=== PATIENT | male | born 1975 | race African-American/Black ===

== ENCOUNTER 2018-04-25 02:50 | Emergency (ER) | payer MEDICAID, OTHER ==
[~2018-04-25] VITALS: Ht 177.8 cm; Wt 77.0 kg
[2018-04-25 03:15] VITALS: BP 136/76
[2018-04-25] MEDS ORDERED: KETOROLAC 60MG/2ML VIAL IM ONE (06:30)
[2018-04-25 06:53] LABS: CLARITY URINE CLOUDY (CLEAR); COLOR URINE YELLOW (YELLOW); KETONES URINE NEGATIVE (NEGATIVE); LEUKOCYTE ESTERASE URINE NEGATIVE (NEGATIVE); NITRITE URINE NEGATIVE (NEGATIVE); OCCULT BLOOD URINE NEGATIVE (NEGATIVE); PH URINE 5.5 (4.5-8.0); PROTEIN URINE NEGATIVE (NEGATIVE); SPECIFIC GRAVITY URINE 1.011 (1.005-1.030)
[2018-04-25 07:06] LABS: *AMPHETAMINES SCREEN URINE NEGATIVE (NEGATIVE); *BARBITURATES SCREEN URINE NEGATIVE (NEGATIVE); *BENZODIAZEPINES SCREEN URINE NEGATIVE (NEGATIVE); *COCAINE SCREEN URINE NEGATIVE (NEGATIVE); METHADONE URINE SCREEN NEGATIVE (NEGATIVE); OPIATES URINE SCREEN NEGATIVE (NEGATIVE)
[2018-04-25 07:07] LABS: CANNABINOID URINE SCREEN NEGATIVE (NEGATIVE); PHENCYCLIDINE URINE SCREEN PRESUMTIVE POSITIVE (NEGATIVE)
== END 2018-04-25 07:00 | disposition left against medical advice (07) ==
LOC: ER 02:54
DX: M54.5 Low back pain (principal); F16.129 Hallucinogen abuse with intoxication, unspecified; F12.10 Cannabis abuse, uncomplicated; V49.88XA Car occupant (driver) (passenger) injured in other specified transport accidents, initial encounter; Y93.89 Activity, other specified; Y99.8 Other external cause status; Y92.410 Unspecified street and highway as the place of occurrence of the external cause
CPT/HCPCS: 80305; 81003; 99284

== ENCOUNTER 2021-03-04 20:08 | Emergency (ER) | payer BC, OTHER ==
[~2021-03-04] VITALS: Ht 182.9 cm; Wt 84.0 kg
[2021-03-04 21:09] LABS: BASOPHILS % 0.5 % (0.0-2.0); HEMATOCRIT. 39.5 % (42.0-52.0); HEMOGLOBIN. 13.9 g/dL (14.0-18.0); LYMPHOCYTES % 31.4 % (20.0-50.0); MEAN CORPUSCULAR HEMOGLOBIN 31.2 pg (28.0-32.0); MEAN CORPUSCULAR VOLUME 88.7 fL (80.0-94.0); MONOCYTES % 12.1 % (2.0-8.0); PLATELET 187 x1000/uL (130-400); RED BLOOD CELL COUNT 4.45 mill/uL (4.7-6.1); RED CELL DISTRIBUTION WIDTH 13.4 % (11.6-14.6)
[2021-03-04 21:15] LABS: CHLORIDE 106 mEq/L (98-107)
[2021-03-04 21:19] LABS: ETHANOL BLOOD < 10 mg/dL
[2021-03-04 22:35] LABS: CLARITY URINE CLEAR (CLEAR); COLOR URINE DARK YELLOW (YELLOW); KETONES URINE TRACE (NEGATIVE); LEUKOCYTE ESTERASE URINE NEGATIVE (NEGATIVE); NITRITE URINE NEGATIVE (NEGATIVE); OCCULT BLOOD URINE NEGATIVE (NEGATIVE); PH URINE 5.5 (4.5-8.0); PROTEIN URINE TRACE (NEGATIVE); SPECIFIC GRAVITY URINE 1.042 (1.005-1.030)
[2021-03-04 22:48] LABS: *AMPHETAMINES SCREEN URINE NEGATIVE (NEGATIVE); *BARBITURATES SCREEN URINE NEGATIVE (NEGATIVE); *BENZODIAZEPINES SCREEN URINE NEGATIVE (NEGATIVE); *COCAINE SCREEN URINE NEGATIVE (NEGATIVE); METHADONE URINE SCREEN NEGATIVE (NEGATIVE); OPIATES URINE SCREEN NEGATIVE (NEGATIVE)
[2021-03-04 22:49] LABS: CANNABINOID URINE SCREEN NEGATIVE (NEGATIVE); PHENCYCLIDINE URINE SCREEN PRESUMTIVE POSITIVE (NEGATIVE)
[2021-03-04] MEDS ORDERED: LORAZEPAM 1MG TABLET PO ONE (23:45)
[2021-03-05 08:27] VITALS: BP 111/91
[2021-03-05] MEDS ORDERED: ACETAMINOPHEN 325MG TABLET PO ONE ×2 (09:15)
== END 2021-03-05 09:10 | disposition home or self-care (01) ==
LOC: ER 20:08
DX: T40.991A Poisoning by other psychodysleptics [hallucinogens], accidental (unintentional), initial encounter (principal); R44.3 Hallucinations, unspecified; I49.9 Cardiac arrhythmia, unspecified; Y92.89 Other specified places as the place of occurrence of the external cause
CPT/HCPCS: 36415; 80053; 80305; 80307; 80320; 80329; 81003; 85025; 93005; 99285; G0480

== ENCOUNTER 2021-03-05 19:29 | Emergency (ER) | payer BC, OTHER ==
[~2021-03-05] VITALS: Ht 177.8 cm; Wt 80.0 kg
[2021-03-05 21:49] LABS: CLARITY URINE CLEAR (CLEAR); COLOR URINE YELLOW (YELLOW); KETONES URINE NEGATIVE (NEGATIVE); LEUKOCYTE ESTERASE URINE NEGATIVE (NEGATIVE); NITRITE URINE NEGATIVE (NEGATIVE); OCCULT BLOOD URINE NEGATIVE (NEGATIVE); PH URINE 5.5 (4.5-8.0); PROTEIN URINE NEGATIVE (NEGATIVE); SPECIFIC GRAVITY URINE 1.009 (1.005-1.030); UROBILINOGEN URINE 0.2 E.U./dL (0.2-1.0)
[2021-03-05 21:51] LABS: BASOPHILS % 0.6 % (0.0-2.0); EOSINOPHILS % 1.4 % (0.0-5.0); HEMATOCRIT. 39.8 % (42.0-52.0); HEMOGLOBIN. 13.7 g/dL (14.0-18.0); LYMPHOCYTES % 34.1 % (20.0-50.0); MEAN CORPUSCULAR HEMOGLOBIN 30.6 pg (28.0-32.0); MEAN CORPUSCULAR VOLUME 88.8 fL (80.0-94.0); MEAN PLATELET VOLUME 7.1 fl (7.4-10.4); MONOCYTES % 9.4 % (2.0-8.0); NEUTROPHILS % 54.5 % (40.0-76.0); PLATELET 193 x1000/uL (130-400); RED BLOOD CELL COUNT 4.48 mill/uL (4.7-6.1); RED CELL DISTRIBUTION WIDTH 13.3 % (11.6-14.6)
[2021-03-05 21:57] LABS: CHLORIDE 105 mEq/L (98-107)
[2021-03-05 22:01] LABS: ETHANOL BLOOD < 10 mg/dL
[2021-03-05 22:19] LABS: *AMPHETAMINES SCREEN URINE NEGATIVE (NEGATIVE); *BARBITURATES SCREEN URINE NEGATIVE (NEGATIVE); *BENZODIAZEPINES SCREEN URINE NEGATIVE (NEGATIVE)
[2021-03-05 22:20] LABS: *COCAINE SCREEN URINE NEGATIVE (NEGATIVE); CANNABINOID URINE SCREEN NEGATIVE (NEGATIVE); METHADONE URINE SCREEN NEGATIVE (NEGATIVE); OPIATES URINE SCREEN NEGATIVE (NEGATIVE); PHENCYCLIDINE URINE SCREEN PRESUMTIVE POSITIVE (NEGATIVE)
[2021-03-05 23:30] VITALS: BP 123/59
== END 2021-03-06 00:08 | disposition home or self-care (01) ==
LOC: ER 19:29
DX: F16.10 Hallucinogen abuse, uncomplicated (principal)
CPT/HCPCS: 36415; 80053; 80305; 80320; 81003; 85025; 93005; 99284; G0480

== ENCOUNTER 2021-03-06 05:16 | Emergency (ER) | payer BC, MEDICAID, OTHER ==
[~2021-03-06] VITALS: Ht 185.4 cm; Wt 100.0 kg
[2021-03-06 05:28] VITALS: BP 130/70
[2021-03-06] MEDS ORDERED: ACETAMINOPHEN 325MG TABLET PO ONE (06:30)
== END 2021-03-06 06:47 | disposition home or self-care (01) ==
LOC: ER 05:16
DX: M79.18 Myalgia, other site (principal); F16.10 Hallucinogen abuse, uncomplicated
CPT/HCPCS: 99281

== ENCOUNTER 2021-10-05 10:08 | Emergency (ER) | payer MEDICAID ==
[~2021-10-05] VITALS: Ht 182.9 cm; Wt 102.0 kg
[2021-10-05 10:53] LABS: BASOPHILS % 0.3 % (0.0-2.0); EOSINOPHILS % 0.5 % (0.0-5.0); HEMATOCRIT. 42.3 % (42.0-52.0); HEMOGLOBIN. 14.2 g/dL (14.0-18.0); LYMPHOCYTES % 22.8 % (20.0-50.0); MEAN CORPUSCULAR HEMOGLOBIN 30.6 pg (28.0-32.0); MEAN CORPUSCULAR VOLUME 91.3 fL (80.0-94.0); MEAN PLATELET VOLUME 6.8 fl (7.4-10.4); MONOCYTES % 6.6 % (2.0-8.0); NEUTROPHILS % 69.8 % (40.0-76.0); PLATELET 211 x1000/uL (130-400); RED BLOOD CELL COUNT 4.64 mill/uL (4.7-6.1); RED CELL DISTRIBUTION WIDTH 13.5 % (11.6-14.6)
[2021-10-05 11:01] LABS: CLARITY URINE CLEAR (CLEAR); COLOR URINE DK YELLOW (YELLOW); KETONES URINE 2+ (NEGATIVE); LEUKOCYTE ESTERASE URINE NEGATIVE (NEGATIVE); NITRITE URINE NEGATIVE (NEGATIVE); OCCULT BLOOD URINE NEGATIVE (NEGATIVE); PH URINE 5.5 (4.5-8.0); PROTEIN URINE TRACE (NEGATIVE); SPECIFIC GRAVITY URINE 1.033 (1.005-1.030); UROBILINOGEN URINE 0.2 E.U./dL (0.2-1.0)
[2021-10-05 11:02] LABS: CHLORIDE 106 mEq/L (98-107)
[2021-10-05 11:07] LABS: ETHANOL BLOOD < 10 mg/dL
[2021-10-05 11:23] LABS: *AMPHETAMINES SCREEN URINE NEGATIVE (NEGATIVE); *BARBITURATES SCREEN URINE NEGATIVE (NEGATIVE); *BENZODIAZEPINES SCREEN URINE NEGATIVE (NEGATIVE); *COCAINE SCREEN URINE NEGATIVE (NEGATIVE)
[2021-10-05 11:25] LABS: CANNABINOID URINE SCREEN NEGATIVE (NEGATIVE); METHADONE URINE SCREEN NEGATIVE (NEGATIVE); OPIATES URINE SCREEN NEGATIVE (NEGATIVE); PHENCYCLIDINE URINE SCREEN PRESUMTIVE POSITIVE (NEGATIVE)
[2021-10-05 13:29] VITALS: BP 134/77
== END 2021-10-05 13:32 | disposition home or self-care (01) ==
LOC: ER 10:14
DX: F41.9 Anxiety disorder, unspecified (principal); F16.10 Hallucinogen abuse, uncomplicated; G47.00 Insomnia, unspecified; T40.995A Adverse effect of other psychodysleptics [hallucinogens], initial encounter; Y92.9 Unspecified place or not applicable; Z20.822 Contact with and (suspected) exposure to COVID-19
CPT/HCPCS: 36415; 80053; 80305; 80307; 80320; 80329; 81003; 85025; 99283; C9803; U0003; U0005; G0480

== ENCOUNTER 2021-10-05 13:23 | Emergency (ER) | payer MEDICAID ==
[~2021-10-05] VITALS: Ht 167.6 cm; Wt 89.0 kg
[2021-10-05 13:40] VITALS: BP 144/88
== END 2021-10-05 20:03 | disposition home or self-care (01) ==
LOC: ER 13:23
DX: F20.9 Schizophrenia, unspecified (principal); F31.9 Bipolar disorder, unspecified
CPT/HCPCS: 99281

== ENCOUNTER 2021-11-14 19:13 | Emergency (ER) | payer MEDICAID ==
[~2021-11-14] VITALS: Ht 182.9 cm; Wt 81.0 kg
[2021-11-14 21:12] VITALS: BP 140/80
[2021-11-14] MEDS ORDERED: IBUPROFEN 800MG TABLET PO ONE (21:15)
== END 2021-11-14 21:20 | disposition home or self-care (01) ==
LOC: ER 19:13
DX: R51.9 Headache, unspecified (principal); I10 Essential (primary) hypertension; F16.10 Hallucinogen abuse, uncomplicated; Y04.0XXA Assault by unarmed brawl or fight, initial encounter; Y07.410 Brother, perpetrator of maltreatment and neglect; Y93.89 Activity, other specified; Y92.018 Other place in single-family (private) house as the place of occurrence of the external cause
CPT/HCPCS: 99283

== ENCOUNTER 2021-11-17 06:44 | Emergency (ER) | payer MEDICAID ==
[~2021-11-17] VITALS: Ht 182.9 cm; Wt 91.0 kg
[2021-11-17] MEDS ORDERED: LORAZEPAM 1MG TABLET PO ONE (07:30)
[2021-11-17 07:48] LABS: BASOPHILS % 0.5 % (0.0-2.0); EOSINOPHILS % 0.9 % (0.0-5.0); HEMATOCRIT. 39.9 % (42.0-52.0); HEMOGLOBIN. 13.6 g/dL (14.0-18.0); MEAN CORPUSCULAR HEMOGLOBIN 31.2 pg (28.0-32.0); MEAN CORPUSCULAR VOLUME 91.3 fL (80.0-94.0); MEAN PLATELET VOLUME 7.4 fl (7.4-10.4); NEUTROPHILS % 69.6 % (40.0-76.0); PLATELET 167 x1000/uL (130-400); RED BLOOD CELL COUNT 4.37 mill/uL (4.7-6.1); RED CELL DISTRIBUTION WIDTH 13.3 % (11.6-14.6)
[2021-11-17 07:56] LABS: CHLORIDE 110 mEq/L (98-107)
[2021-11-17 08:01] LABS: ETHANOL BLOOD < 10 mg/dL
[2021-11-17 10:10] LABS: CLARITY URINE CLEAR (CLEAR); COLOR URINE YELLOW (YELLOW); KETONES URINE TRACE (NEGATIVE); LEUKOCYTE ESTERASE URINE NEGATIVE (NEGATIVE); NITRITE URINE NEGATIVE (NEGATIVE); OCCULT BLOOD URINE NEGATIVE (NEGATIVE); PROTEIN URINE NEGATIVE (NEGATIVE); SPECIFIC GRAVITY URINE 1.025 (1.005-1.030)
[2021-11-17 10:26] LABS: *AMPHETAMINES SCREEN URINE NEGATIVE (NEGATIVE); *BARBITURATES SCREEN URINE NEGATIVE (NEGATIVE); *BENZODIAZEPINES SCREEN URINE NEGATIVE (NEGATIVE); *COCAINE SCREEN URINE NEGATIVE (NEGATIVE); CANNABINOID URINE SCREEN NEGATIVE (NEGATIVE); PHENCYCLIDINE URINE SCREEN PRESUMTIVE POSITIVE (NEGATIVE)
[2021-11-17 10:27] LABS: METHADONE URINE SCREEN NEGATIVE (NEGATIVE); OPIATES URINE SCREEN NEGATIVE (NEGATIVE)
[2021-11-17 12:05] VITALS: BP 128/92
== END 2021-11-17 12:07 | disposition home or self-care (01) ==
LOC: ER 06:44
DX: F16.129 Hallucinogen abuse with intoxication, unspecified (principal); I10 Essential (primary) hypertension
CPT/HCPCS: 36415; 80053; 80305; 80307; 80320; 80329; 81003; 82140; 85025; 99283; G0480

== ENCOUNTER 2021-12-02 21:04 | Emergency (ER) | payer MEDICAID, OTHER | END 2021-12-02 23:14 | disposition left against medical advice (07) | LOC: ER 21:04 | DX: Z53.21 Procedure and treatment not carried out due to patient leaving prior to being seen by health care provider (principal) ==

== ENCOUNTER 2022-06-12 16:07 | Emergency (ER) | payer OTHER ==
[~2022-06-12] VITALS: Ht 182.9 cm; Wt 98.0 kg
[2022-06-12 16:23] VITALS: BP 128/81
[2022-06-12] MEDS ORDERED: SULF1TAB48 MT (21:37)
== END 2022-06-12 23:17 | disposition home or self-care (01) ==
LOC: ER 16:07
DX: L02.415 Cutaneous abscess of right lower limb (principal)
CPT/HCPCS: 99281

== ENCOUNTER 2022-08-19 23:42 | Emergency (ER) | payer OTHER ==
[~2022-08-19] VITALS: Ht 182.9 cm; Wt 90.0 kg
[~2022-08-19 23:42] MED LIST: SULF1TAB48 MT
[2022-08-19 23:52] VITALS: BP 130/91
== END 2022-08-20 00:54 | disposition home or self-care (01) ==
LOC: ER 08-20 00:16
DX: F10.129 Alcohol abuse with intoxication, unspecified (principal); Y90.0 Blood alcohol level of less than 20 mg/100 ml; F17.290 Nicotine dependence, other tobacco product, uncomplicated; F12.10 Cannabis abuse, uncomplicated
CPT/HCPCS: 99283

== ENCOUNTER 2022-11-18 20:47 | Emergency (ER) | payer MEDICAID, OTHER ==
[~2022-11-18] VITALS: Ht 182.9 cm; Wt 98.0 kg
[2022-11-18 20:57] VITALS: BP 118/80
== END 2022-11-18 23:35 | disposition home or self-care (01) ==
LOC: ER 20:47
DX: S09.8XXA Other specified injuries of head, initial encounter (principal); Y08.89XA Assault by other specified means, initial encounter; Y93.9 Activity, unspecified
CPT/HCPCS: 70486; 99284

== ENCOUNTER 2022-11-21 04:30 | Emergency (ER) | payer OTHER ==
[~2022-11-21] VITALS: Ht 177.8 cm; Wt 90.0 kg
[2022-11-21 05:17] VITALS: BP 142/80
[2022-11-21] MEDS ORDERED: ACETAMINOPHEN 325MG TABLET PO ONE (11:15)
[2022-11-21] MEDS ORDERED: IBUP-2028 MT (12:01)
[2022-11-21] MEDS ORDERED: ACET-2708 MT (12:01)
[2022-11-21] MEDS ORDERED: BO1 TP (12:12)
== END 2022-11-21 12:26 | disposition home or self-care (01) ==
LOC: ER 04:30
DX: T14.8XXA Other injury of unspecified body region, initial encounter (principal); R51.9 Headache, unspecified; F12.10 Cannabis abuse, uncomplicated; Y04.0XXA Assault by unarmed brawl or fight, initial encounter; Y93.89 Activity, other specified; Y92.89 Other specified places as the place of occurrence of the external cause; Y99.8 Other external cause status
CPT/HCPCS: 99283

== ENCOUNTER 2023-01-25 14:30 | Emergency (ER) | payer OTHER ==
[~2023-01-25] VITALS: Ht 182.9 cm; Wt 95.0 kg
[~2023-01-25 14:30] MED LIST changes: +ACET-2708 MT; +BO1 TP; +IBUP-2028 MT
[2023-01-25] MEDS ORDERED: CEPHALEXIN 250MG CAPSULE PO ONE (17:45)
[2023-01-25 18:33] LABS: CLARITY URINE CLEAR (CLEAR); COLOR URINE YELLOW (YELLOW); KETONES URINE 2+ (NEGATIVE); LEUKOCYTE ESTERASE URINE NEGATIVE (NEGATIVE); NITRITE URINE NEGATIVE (NEGATIVE); OCCULT BLOOD URINE NEGATIVE (NEGATIVE); PROTEIN URINE NEGATIVE (NEGATIVE); SPECIFIC GRAVITY URINE 1.027 (1.005-1.030)
[2023-01-25 18:50] LABS: *AMPHETAMINES SCREEN URINE NEGATIVE (NEGATIVE); *BARBITURATES SCREEN URINE NEGATIVE (NEGATIVE); *BENZODIAZEPINES SCREEN URINE NEGATIVE (NEGATIVE); *COCAINE SCREEN URINE NEGATIVE (NEGATIVE); CANNABINOID URINE SCREEN NEGATIVE (NEGATIVE); METHADONE URINE SCREEN NEGATIVE (NEGATIVE); OPIATES URINE SCREEN NEGATIVE (NEGATIVE); PHENCYCLIDINE URINE SCREEN PRESUMTIVE POSITIVE (NEGATIVE)
[2023-01-25 20:03] LABS: BASOPHILS % 0.3 % (0.0-2.0); EOSINOPHILS % 1.2 % (0.0-5.0); HEMATOCRIT. 44.1 % (42.0-52.0); HEMOGLOBIN. 14.8 g/dL (14.0-18.0); LYMPHOCYTES % 29.7 % (20.0-50.0); MEAN CORPUSCULAR HEMOGLOBIN 29.9 pg (28.0-32.0); MEAN CORPUSCULAR VOLUME 88.8 fL (80.0-94.0); MEAN PLATELET VOLUME 8.6 fl (7.4-10.4); MONOCYTES % 7.1 % (2.0-8.0); NEUTROPHILS % 61.7 % (40.0-76.0); PLATELET 60 x1000/uL (130-400); RED BLOOD CELL COUNT 4.96 mill/uL (4.7-6.1); RED CELL DISTRIBUTION WIDTH 13.7 % (11.6-14.6)
[2023-01-25 20:13] LABS: CHLORIDE 104 mEq/L (98-107)
[2023-01-25 20:20] LABS: ETHANOL BLOOD < 10 mg/dL
[2023-01-26] MEDS: OLANZAPINE 5MG TABLET ODT PO SCH ×2 (14:00→21:38)
[2023-01-27] MEDS: OLANZAPINE 5MG TABLET ODT PO SCH ×2 (09:20→17:51)
[2023-01-27] MEDS ORDERED: OLANZAPINE 10 MG/VIAL IM ONE (12:15)
[2023-01-28] MEDS: OLANZAPINE 5MG TABLET ODT PO SCH ×2 (09:00→17:00)
[2023-01-28 21:03] VITALS: BP 116/59
== END 2023-01-28 21:29 ==
LOC: ER 14:30
DX: R45.851 Suicidal ideations (principal); T40.991A Poisoning by other psychodysleptics [hallucinogens], accidental (unintentional), initial encounter; Y92.9 Unspecified place or not applicable; Z20.822 Contact with and (suspected) exposure to COVID-19
CPT/HCPCS: 36415; 80053; 80305; 80307; 80320; 80329; 81003; 85025; 87426; 99283; C9803; J3490; G0480

== ENCOUNTER 2024-09-07 13:35 | Emergency (ER) | payer MEDICAID, OTHER ==
[~2024-09-07] VITALS: Ht 188 cm; Wt 113.3 kg
[2024-09-07 14:07] VITALS: O2SAT 98
[2024-09-07 15:19] VITALS: BP 134/83; PULSE 94; RESP 18; TEMP 36.72516; O2SAT 98
== END 2024-09-07 15:30 | disposition home or self-care (01) ==
LOC: ER 13:35
DX: F31.9 Bipolar disorder, unspecified (principal); F10.20 Alcohol dependence, uncomplicated; F15.90 Other stimulant use, unspecified, uncomplicated; Z59.00 Homelessness unspecified; Y90.9 Presence of alcohol in blood, level not specified
CPT/HCPCS: 99281

== ENCOUNTER 2024-11-11 17:53 | Emergency (ER) | payer MEDICAID, OTHER ==
[~2024-11-11] VITALS: Ht 185.4 cm; Wt 110.0 kg
[2024-11-11 17:54] VITALS: BP 151/109; PULSE 82; RESP 16; TEMP 98; O2SAT 97
[2024-11-11] MEDS: OLANZAPINE 5MG TABLET ODT PO ONE (20:00)
[2024-11-11 20:57] LABS: BASOPHILS % 0.6 % (0.0-2.0); EOSINOPHILS % 2.3 % (0.0-5.0); HEMATOCRIT. 42.3 % (42.0-52.0); HEMOGLOBIN. 14.2 g/dL (14.0-18.0); LYMPHOCYTES % 29.5 % (20.0-50.0); MEAN CORPUSCULAR HEMOGLOBIN 30.8 pg (28.0-32.0); MEAN CORPUSCULAR HGB CONC 33.5 g/dL (31.0-37.0); MEAN CORPUSCULAR VOLUME 91.8 fL (80.0-94.0); MONOCYTES % 6.4 % (2.0-8.0); NEUTROPHILS % 61.2 % (40.0-76.0); PLATELET 204 x1000/uL (130-400); RED BLOOD CELL COUNT 4.61 mill/uL (4.7-6.1); RED CELL DISTRIBUTION WIDTH 13.7 % (11.6-14.6); WHITE BLOOD COUNT 7.6 x1000/uL (4.5-11.0)
[2024-11-11 21:02] LABS: CARBON DIOXIDE 30 mEq/L (21-32); CHLORIDE 104 mEq/L (98-107); POTASSIUM 4.1 mEq/L (3.5-5.1); SODIUM 139 mEq/L (136-145)
[2024-11-11 21:03] LABS: CALCIUM 9.6 mg/dL (8.7-10.4)
[2024-11-11 21:08] LABS: CREATININE 1.1 mg/dL (0.6-1.3); GLUCOSE 117 mg/dL (70-105); UREA NITROGEN BLOOD 13 mg/dL (9-23)
[2024-11-11 21:09] LABS: ETHANOL BLOOD < 10 mg/dL (<10)
== END 2024-11-11 21:37 | disposition home or self-care (01) ==
LOC: ER 17:53
DX: F31.9 Bipolar disorder, unspecified (principal); F20.9 Schizophrenia, unspecified; F15.90 Other stimulant use, unspecified, uncomplicated; Z76.0 Encounter for issue of repeat prescription; Z91.199 Patient's noncompliance with other medical treatment and regimen due to unspecified reason
CPT/HCPCS: 36415; 80048; 80320; 85025; 99283; G0480

== ENCOUNTER 2025-09-05 04:54 | Emergency (ER) | payer OTHER ==
[~2025-09-05] VITALS: Ht 182.9 cm; Wt 123.0 kg
[2025-09-05 04:56] VITALS: BP 138/89; PULSE 79; RESP 18; TEMP 37.1; O2SAT 99
[2025-09-05] MEDS ORDERED: CYCL5TAB3 MT (05:25)
[2025-09-05] MEDS: CYCLOBENZAPRINE 10MG TABLET PO SCH (05:30)
== END 2025-09-05 05:28 | disposition left against medical advice (07) ==
LOC: ER 05:27
DX: M62.838 Other muscle spasm (principal); F15.90 Other stimulant use, unspecified, uncomplicated; F10.90 Alcohol use, unspecified, uncomplicated; Z98.890 Other specified postprocedural states; Z79.899 Other long term (current) drug therapy; Y90.9 Presence of alcohol in blood, level not specified
CPT/HCPCS: 99283